=== PATIENT | female | born 1955 | race Hispanic/Latino ===

== ENCOUNTER → 2017-11-12 | Outpatient (CLI) | payer OTHER | LOC: MAMMO 11:25 | PROVIDERS: ATTEND Family Medicine | DX: Z12.31 Encounter for screening mammogram for malignant neoplasm of breast (principal) | CPT/HCPCS: 77067 ==

== ENCOUNTER → 2018-01-06 | Outpatient (CLI) | payer OTHER ==
--- NOTE | 2018-01-06 16:12 | Diagnostic Imaging Report ---
#[id number] - MGDXLT #UNILATERAL LEFT DIGITAL DIAGNOSTIC MAMMOGRAM WITH SPOT COMPRESSION: 01/06/2018 Comparison is made to exam dated: 11/12/2017 mammogram - [facility]. Current study contains 3 films. There are scattered fibroglandular elements in the left breast. Focal spot compression in the left breast reveal persistent findings of several nodules. IMPRESSION: INCOMPLETE: NEEDS ADDITIONAL IMAGING EVALUATION Several nodules in the left breast are indeterminate and require additional evaluation. Ultrasound of the left breast is recommended and will be performed today. Raj Browne Jr., D.O. cw/:01/06/2018 12:48:14 Supervisor Special Services: Elke ARREOLA(R)(M), [facility] letter sent: Additional Imaging Needed Mammogram BI-RADS: 0 Indeterminate
--- NOTE | 2018-01-06 16:12 | Diagnostic Imaging Report ---
#[id number] - USBRECOMLT ULTRASOUND OF THE LEFT BREAST : 01/06/2018 Comparison is made to exams dated: 01/06/2018 mammogram and 11/12/2017 mammogram - [facility]. Color flow and real-time ultrasound were performed on the entire left breast with scanning in all four quadrants, retroareolar region and the left axilla. -At 12 o'clock 2 cm from the nipple is a hypoechoic nodule measuring 5 x 3 x 10 mm -At 12 o'clock 2 cm from the nipple is a hypoechoic nodule measuring 4 x 2 x 8 mm -At 1 o'clock 3 cm from the nipple is a hypoechoic nodule likely a cyst with debris measuring 3 x 2 x 5 mm -At the subareolar region is a hypoechoic nodule with associated calcifications measuring 4 x 3 x 4 mm IMPRESSION: PROBABLY BENIGN - FOLLOW-UP RECOMMENDED Multiple small nodules as described above have benign characteristics and likely are benign. A follow-up ultrasound in 6 months is recommended to demonstrate stability. The patient was informed of these findings and the need for follow-up. Raj Browne Jr., D.O. cw/:01/06/2018 12:44:03 Unified Communications Architect: HANNA LUCIO [facility] letter sent: Followup Recommended Ultrasound BI-RADS: 3 Probably benign
== END ==
LOC: MAMMO 08:16
PROVIDERS: ATTEND Family Medicine
DX: R92.8 Other abnormal and inconclusive findings on diagnostic imaging of breast (principal)

== ENCOUNTER → 2018-02-18 | Outpatient (CLI) | payer OTHER ==
[~2018-02-18] MED LIST: DIATRIZOATE MEGL/DIATRIZOA SOD 30 ML BTL PO ONE; IOPAMIDOL 370 MG/ML 200 ML INFUS..BTL INJ ONE; SODIUM CHLORIDE 0.9% 50ML 50 ML ONE
[2018-02-18 13:40] LABS: BLOOD UREA NITROGEN 13 mg/dL (7-26); BUN/CREATININE RATIO 18 (6-25); CREATININE, SERUM 0.71 mg/dL (0.57-1.11); EST GLOMERULAR FILTRATION RATE > 60 ML/MIN (60-)
--- NOTE | 2018-02-18 14:31 | Diagnostic Imaging Report ---
EXAMINATION: CT of the abdomen and pelvis with contrast. TECHNIQUE: Helical CT images of the abdomen and pelvis were performed from the lung bases to the lesser trochanters after the intravenous administration of 150 cc of Isovue 300 and the oral administration of Gastrografin. Coronal and sagittal reformatted images were obtained. COMPARISON: None. CLINICAL HISTORY:Abdominal pain DISCUSSION: ABDOMEN/PELVIS: LOWER THORAX:Unremarkable. HEPATOBILIARY: Hepatic steatosis. No enhancing lesion. Liver measures 17 cm in the mid clavicular line. No intra-or extrahepatic biliary ductal dilation. Cholecystectomy. SPLEEN: No splenomegaly. PANCREAS: No focal masses or ductal dilatation. ADRENALS: No adrenal nodules. KIDNEYS/URETERS: 1.3 cm cyst left kidney. Otherwise, unremarkable. PELVIC ORGANS/BLADDER: Bladder is normal. Hysterectomy. PERITONEUM/RETROPERITONEUM: No free air or fluid. LYMPH NODES: No intra-abdominal, retroperitoneal, pelvic or inguinal lymphadenopathy. VESSELS: Patent. GI TRACT: Colonic diverticulosis. No inflammatory change. Appendix not visualized. BONES AND SOFT TISSUE: No bony destructive lesions. Fat-containing supraumbilical abdominal hernia measuring 5.8 cm. Narrow neck measuring 1 cm axial image 57. IMPRESSION: Colonic diverticulosis. No inflammatory change. Hepatic steatosis. Cholecystectomy. Signed by: Dr. Alden Cross M.D. on 02/18/2018 2:27 PM
== END ==
LOC: CT 11:45
PROVIDERS: ATTEND Family Medicine
DX: R10.32 Left lower quadrant pain (principal)
CPT/HCPCS: 36415; 74177; 82565; 84520; Q9967

== ENCOUNTER → 2018-10-20 | Outpatient (CLI) | payer OTHER | LOC: MAMMO 08:51 | PROVIDERS: ATTEND Family Medicine | DX: R92.8 Other abnormal and inconclusive findings on diagnostic imaging of breast (principal) | CPT/HCPCS: 77066 ==

== ENCOUNTER → 2019-11-22 | Outpatient (CLI) | payer OTHER ==
--- NOTE | 2019-11-22 10:13 | Diagnostic Imaging Report ---
EXAMINATION: HIP RIGHT 2-3 VW (+/- PELVIS), FEMUR TWO VIEW MINIMUM RIGHT INDICATION: Right hip pain COMPARISON: None FINDINGS: AP and frog-leg views of the right hip and AP, lateral, and oblique views of the right femur demonstrate no acute fracture or dislocation. Alignment is anatomic. Mild degenerative changes of the right hip joint. No substantial joint effusion. The soft tissues appear unremarkable. IMPRESSION: No acute osseous injury. Signed by: Mel Paulino MD on 11/22/2019 10:10 AM
== END ==
LOC: MAMMO 08:53
PROVIDERS: ATTEND Family Medicine
DX: M25.551 Pain in right hip (principal)
CPT/HCPCS: 77067